=== PATIENT | female | born 1995 | race Caucasian/White ===

== ENCOUNTER 2018-11-27 13:32 | Outpatient (CLI) | payer OTHER ==
[~2018-11-27 13:32] MED LIST: Gadobenate Dimeglumine 529 MG/1 ML (20ML VIAL) ONE
--- NOTE | 2018-12-06 10:21 | MRI ---
MRI Brain W WO Con: 11/27/2018 12:00 AM CLINICAL HISTORY: Pituitary tumor. COMPARISON: Prior comparisons have not been retrieved. Multiple attempts for retrieval have been perf ormed to acquire prior imaging. FINDINGS: Extra axial spaces: There is a circumscribed sellar mass with intrinsic T1 hyperintensity occupying t he posterior mid aspect of the sella, 9 mm in craniocaudal dimension by 10 mm in AP dimension by 12 mm in transverse dimension. There is a slight degree of displacement about the undersurface of the pi tuitary infundibulum. No mass effect upon the optic chiasm. Acute infarction: None. Ventricular system: Normal in size and morphology for the patient's age. Basal cisterns: Normal. Cerebral parenchyma: Normal. Midline shift: None. Cerebellum: Normal. Brainstem: Normal. 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
== END 2018-11-27 13:33 | disposition home or self-care (01) ==
LOC: TBSIIMAG 13:32
PROVIDERS: ATTEND Surgery
DX: D35.2 Benign neoplasm of pituitary gland (principal)
CPT/HCPCS: 70553; A9577